=== PATIENT | female | born 1940 | race Caucasian/White ===

== ENCOUNTER 2021-02-11 09:22 | Day surgery (SDC) | payer MEDICARE, OTHER, SELFPAY ==
--- NOTE | 2021-02-11 10:33 | MHC.SHP ---
Pre-Procedural Eval Section A The patient is an INPATIENT: No The History & Physical has been completed within 30 days and I have reviewed it.: Yes Section B Chief Complaint: ocular hypertension Allergies: Allergies Allergy/AdvReac Type Severity Reaction Status Date / Time acetaminophen [Percocet] Allergy Unknown hives Verified 06/27/14 00:00 hydroxychloroquine Allergy Unknown diarrhea Verified 06/27/14 00:00 [Plaquenil] oxycodone [Percocet] Allergy Unknown hives Verified 06/27/14 00:00 propofol Allergy Unknown anaphylaxis Verified 06/27/14 00:00 Plan Diagnosis/Plan: Unchanged I have reviewed the history and physical and performed a pertinent physical examination on my patient. No changes have occurred unless specified.
[2021-02-11 10:52] VITALS: BP 149/70; PULSE 58; RESP 18; TEMP 36.8; O2SAT 95; BMI 38.4
[2021-02-11 11:18] LABS: Glucose, Whole Blood 151 mg/dL (60-115)
--- NOTE | 2021-02-11 11:22 | HO.ANESPROP2 ---
HPI - Anesthesia Eval Consult details Narrative: right eye high IOP PMFSH Past Medical History Medical History COVID-19 vaccine series completed Diabetes Elevated cholesterol Glaucoma HTN (hypertension) Osteopenia Overactive bladder Rheumatoid arthritis Scoliosis Surgical History Surgical History H/O bilateral cataract extraction History of bladder suspension procedure History of bunionectomy History of total abdominal hysterectomy and bilateral salpingo-oophorectomy History of total bilateral knee replacement Hx of colonoscopy Hx of esophagogastroduodenoscopy Hx of eye surgery Social History Social History Patient Tobacco Use Status: Never used Tobacco Use of substances other than those prescribed or required for medical reasons: No Are you DNR?: No Advance Directives: No Advance Directives Information Provided: Yes Meds Allergies Allergy/AdvReac Type Severity Reaction Status Date / Time acetaminophen [Percocet] Allergy Unknown hives Verified 02/11/21 10:45 hydroxychloroquine Allergy Unknown diarrhea Verified 02/11/21 10:45 [Plaquenil] oxycodone [Percocet] Allergy Unknown hives Verified 02/11/21 10:45 propofol Allergy Unknown anaphylaxis Verified 02/11/21 10:45 methotrexate Allergy Blister Verified 02/11/21 10:47 Active Medications: Current Medications Generic Name Dose Route Start Last Admin Trade Name Freq PRN Reason Stop Dose Admin Povidone Iodine 1 appl 02/11/21 10:33 Povidone Iodine 5 % Ophth Soln 30 Ml Bottle EYE-RIGHT PREOP PRN Pre-Op Surgical Implant Prophy Home Medications Medication Instructions Recorded Confirmed Last Taken Type Calcium + D 02/11/21 Unknown History Fish Oil 02/11/21 Unknown History amlodipine 1 tab PO BID 02/11/21 02/11/21 Unknown History aspirin 81 mg PO BEDTIME 02/11/21 02/11/21 Unknown History dorzolamide-timolol 02/11/21 Unknown History duloxetine 1 cap PO DAILY 02/11/21 02/11/21 Unknown History flaxseed oil 02/11/21 02/11/21 Unknown History hydrochlorothiazide 1 tab PO DAILY 02/11/21 02/11/21 Unknown History latanoprost 1 drp OPHTHALMIC (EYE) BEDTIME 02/11/21 02/11/21 Unknown History metformin 1 tab PO BID 02/11/21 02/11/21 Unknown History crwufxtokamf-jbgfeisp-arfakp 1 tab PO DAILY 02/11/21 02/11/21 Unknown History [Centrum Silver] omeprazole 1 cap PO DAILY 02/11/21 02/11/21 Unknown History oxybutynin chloride 1 tab PO BID 02/11/21 02/11/21 Unknown History simvastatin 1 tab PO BEDTIME 02/11/21 02/11/21 Unknown History sulfasalazine 2 tab PO BID 02/11/21 02/11/21 Unknown History Exam Exam Date and Time: February 11, 2021 1122 Height,Weight and Vital Signs: Height 5 ft 2 in Weight 95.254 kg Last Vital Signs Temp 98.3 F 02/11/21 10:52 Pulse 58 02/11/21 10:52 Resp 18 02/11/21 10:52 BP 149/70 H 02/11/21 10:52 Pulse Ox 95 02/11/21 10:52 Pertinent Lab Results Pertinent Lab Results: Laboratory Tests 02/11/21 10:59 POC Glucose 151 H Airway Mallampati Class: II TM Dist: >3cm Neck ROM: Full Loose/Missing/Broken Teeth: Yes Heart: [id number] Lungs: cta b/l Assessment and Plan Assessment Anesthesia Assessment: Anesthesia Plan Discussed, PAT Visit and Chart Reviewed Final Anesthetic Review NPO: Yes ASA Class: III Final Preanesthetic Review: No Changes in Pt Med Stat, Meds/Allgs Chart Reviewed, Consent Obtained/Reviewed and Anes Risks/Benef Reviewed Patient Risk: Intermediate Procedure Risk: Low Assessment/Block/Sedation in SS: Assess/Block/Sedation-SS Anesthetic Plan Anesthetic Plan: MAC: Disposition: Standard PACU
--- NOTE | 2021-02-11 11:51 | HO.PNOPHT ---
Ophthalmology Procedure Procedure Date of Service: 02/11/21 Ophthalmology Viscoelastic: Healon Duet Dual Pack Pro Ophthalmology Lenses: Not Applicable Procedure Notes: PREOPERATIVE DIAGNOSIS: Uncontrolled glaucoma right eye POSTOPERATIVE DIAGNOSIS: Same PROCEDURE: Trabeculectomy right eye SURGEON: Geo Martinez M.D. ANESTHESIA: Topical with sedation ESTIMATED BLOOD LOSS: None COMPLICATIONS: None After obtaining informed consent, the patient was brought to the operating room suite and placed in a supine position. After adequate sedation per Anesthesia, drops of Tetracaine were given to the right eye. The eye was then prepped and draped in the usual sterile fashion. The operating room microscope was positioned over the right eye and a lid speculum placed. A peritomy was created utilizing a combination of sharp and blunt dissection with Chaim scissors. Hemostasis was then achieved utilizing a wet-field cautery. A guarded blade was utilized to create a partial thickness scleral incision 2 mm posterior to the limbus. This was advanced with a crescent blade into clear cornea. A paracentesis was created temporally, followed by instillation of Viscoelastic superiorly. Attention was directed back to the scleral incision site where the anterior chamber was entered utilizing a 2.85 mm keratome. A Sarah punch was utilized to remove trabecular tissue. Aqueous humor was monitored for adequate egress followed by closure of the conjunctiva with Vicryl suture. BSS was instilled into the anterior chamber creating a superior bleb with no obvious leaks superiorly. The lid speculum was removed. Topical drops of antibiotics, steroids and Atropine were then given. The patient tolerated the procedure well and will be followed up in the a.m.
[2021-02-11 12:25] VITALS: BP 130/55; PULSE 58; RESP 18; TEMP 36.6; O2SAT 100
[2021-02-11 12:40] VITALS: BP 139/68; PULSE 60; RESP 18; TEMP 36.6; O2SAT 97
== END 2021-02-11 12:58 | disposition home or self-care (01) ==
PROVIDERS: PCP Internal Medicine Geriatric Medicine; Visit Provider Ophthalmology
PROC: (CPT 66170; principal; 2021-02-11 12:20)
DX: H40.053 Ocular hypertension, bilateral (principal); E11.9 Type 2 diabetes mellitus without complications; I10 Essential (primary) hypertension; Z79.84 Long term (current) use of oral hypoglycemic drugs; Z79.899 Other long term (current) drug therapy; Z88.5 Allergy status to narcotic agent
CPT/HCPCS: 66170; 82947; J2250; J2405; J3010; J7315

== ENCOUNTER 2021-02-25 17:11 | Day surgery (SDC) | payer MEDICARE, OTHER, SELFPAY ==
[2021-02-18 10:41] VITALS: BMI 38.4
--- NOTE | 2021-02-21 08:05 | MHC.SHP ---
Pre-Procedural Eval Section A Date of Service: 02/21/21 The patient is an INPATIENT: No The History & Physical has been completed within 30 days and I have reviewed it.: Yes Section B Chief Complaint: ocular hypertension Allergies: Allergies Allergy/AdvReac Type Severity Reaction Status Date / Time propofol Allergy Severe anaphylaxis Verified 02/18/21 10:35 hydroxychloroquine Allergy Intermediate diarrhea Verified 02/18/21 10:35 [Plaquenil] oxycodone [Percocet] Allergy Intermediate hives Verified 02/18/21 10:35 methotrexate Allergy Mild Blister Verified 02/18/21 10:35 Plan Diagnosis/Plan: Unchanged I have reviewed the history and physical and performed a pertinent physical examination on my patient. No changes have occurred unless specified.
[2021-02-25 14:54] VITALS: BP 162/70; PULSE 62; RESP 16; TEMP 36.8; O2SAT 97
[2021-02-25 15:14] LABS: Glucose, Whole Blood 134 mg/dL (60-115)
--- NOTE | 2021-02-25 15:16 | HO.ANESPROP2 ---
[facility] Past Medical History Medical History COVID-19 vaccine series completed Diabetes Elevated cholesterol Glaucoma HTN (hypertension) Osteopenia Overactive bladder Rheumatoid arthritis Scoliosis Surgical History Surgical History H/O bilateral cataract extraction History of bladder suspension procedure History of bunionectomy History of total abdominal hysterectomy and bilateral salpingo-oophorectomy History of total bilateral knee replacement History of trabeculectomy Hx of colonoscopy Hx of esophagogastroduodenoscopy Hx of eye surgery Social History Social History Patient Tobacco Use Status: Never used Tobacco Use of substances other than those prescribed or required for medical reasons: No Are you DNR?: No Advance Directives: No Advance Directives Information Provided: Yes Meds Allergies Allergy/AdvReac Type Severity Reaction Status Date / Time propofol Allergy Severe anaphylaxis Verified 02/25/21 14:49 hydroxychloroquine Allergy Intermediate diarrhea Verified 02/25/21 14:49 [Plaquenil] oxycodone [Percocet] Allergy Intermediate hives Verified 02/25/21 14:49 methotrexate Allergy Mild Blister Verified 02/25/21 14:49 Active Medications: Current Medications Generic Name Dose Route Start Last Admin Trade Name Freq PRN Reason Stop Dose Admin Lactated Ringer's 500 mls @ 50 mls/hr 02/25/21 15:15 Lr IV 02/26/21 01:14 .Q10H DANTE Povidone Iodine 1 appl 02/25/21 14:46 Povidone Iodine 5 % Ophth Soln 30 Ml Bottle EYE-LEFT PREOP PRN Pre-Op Surgical Implant Prophy Home Medications Medication Instructions Recorded Confirmed Last Taken Type amlodipine 5 mg PO BID 02/11/21 02/18/21 02/25/21 08:30 History aspirin 81 mg PO BEDTIME 02/11/21 02/18/21 02/23/21 21:30 History dorzolamide-timolol 1 drp OPHTHALMIC (EYE) BID 02/11/21 02/18/21 Unknown History duloxetine 1 cap PO BID 02/11/21 02/18/21 02/25/21 08:30 History hydrochlorothiazide 1 tab PO DAILY 02/11/21 02/18/21 Unknown History latanoprost 1 drp OPHTHALMIC (EYE) BEDTIME 02/11/21 02/18/21 Unknown History metformin 1 tab PO BID 02/11/21 02/18/21 Unknown History tbthghigteye-zvsphack-dfqmax 1 tab PO DAILY 02/11/21 02/18/21 Unknown History [Centrum Silver] omeprazole 1 cap PO DAILY 02/11/21 02/18/21 02/25/21 08:30 History oxybutynin chloride 1 tab PO BID 02/11/21 02/18/21 02/25/21 08:30 History simvastatin 1 tab PO BEDTIME 02/11/21 02/18/21 Unknown History sulfasalazine 2 tab PO BID 02/11/21 02/18/21 Unknown History calcium carbonate-vitamin D2 1 tab PO BID 02/18/21 02/18/21 Unknown History [Calcium + Vitamin D] flaxseed oil 1,000 mg PO DAILY 02/18/21 02/18/21 02/25/21 08:30 History omega 5-mfu-rqs-fish oil [Fish Oil] 1 cap PO DAILY 02/18/21 02/18/21 Unknown History Exam Exam Date and Time: February 25, 2021 1516 Height,Weight and Vital Signs: Height 5 ft 2 in Weight 95.254 kg Last Vital Signs Temp 98.2 F 02/25/21 14:54 Pulse 62 02/25/21 14:54 Resp 16 02/25/21 14:54 BP 162/70 H 02/25/21 14:54 Pulse Ox 97 02/25/21 14:54 Pertinent Lab Results Pertinent Lab Results: Laboratory Tests 02/25/21 15:11 POC Glucose 134 H Airway Mallampati Class: II TM Dist: >3cm Neck ROM: Full Heart: rrr Lungs: cta Assessment and Plan Assessment Anesthesia Assessment: Anesthesia Plan Discussed and Chart Reviewed Final Anesthetic Review NPO: Yes ASA Class: III Final Preanesthetic Review: No Changes in Pt Med Stat and Consent Obtained/Reviewed Patient Risk: Intermediate Procedure Risk: Intermediate Anesthetic Plan Anesthetic Plan: MAC: Disposition: Standard PACU
[2021-02-25] MEDS: Lactated Ringers 500 ML 50 ML IV (15:44)
--- NOTE | 2021-02-25 16:01 | P.PCNO_ITS ---
Ophthalmology Procedure Procedure Date of Service: 02/25/21 Ophthalmology Viscoelastic: Healon Duet Dual Pack Pro Ophthalmology Lenses: Not Applicable Procedure Notes: PREOPERATIVE DIAGNOSIS: Uncontrolled glaucoma left eye POSTOPERATIVE DIAGNOSIS: Same PROCEDURE: Trabeculectomy left eye SURGEON: Geo Martinez M.D. ANESTHESIA: Topical with sedation ESTIMATED BLOOD LOSS: None COMPLICATIONS: None After obtaining informed consent, the patient was brought to the operating room suite and placed in a supine position. After adequate sedation per Anesthesia, drops of Tetracaine were given to the left eye. The eye was then prepped and draped in the usual sterile fashion. The operating room microscope was positioned over the left eye and a lid speculum placed. A peritomy was created utilizing a combination of sharp and blunt dissection with Chaim scissors. Hemostasis was then achieved utilizing a wet-field cautery. A guarded blade was utilized to create a partial thickness scleral incision 2 mm posterior to the limbus. This was advanced with a crescent blade into clear cornea. A paracentesis was created temporally, followed by instillation of Viscoelastic superiorly. Attention was directed back to the scleral incision site where the anterior chamber was en tered utilizing a 2.85 mm keratome. A Sarah punch was utilized to remove trabecular tissue. Aqueous humor was monitored for adequate egress followed by closure of the conjunctiva with Vicryl suture. BSS was instilled into the anterior chamber creating a superior bleb with no obvious leaks superiorly. The lid speculum was removed. Topical drops of antibiotics, steroids and Atropine were then given. The patient tolerated the procedure well and will be followed up in the a.m.
[2021-02-25 16:53] VITALS: BP 145/63; PULSE 69; RESP 16; TEMP 36.2; O2SAT 97
== END 2021-02-25 17:15 | disposition home or self-care (01) ==
LOC: HO.SSS 17:12
PROVIDERS: PCP Internal Medicine Geriatric Medicine; Visit Provider Ophthalmology
PROC: (CPT 66170; principal; 2021-02-25 15:10)
DX: H40.052 Ocular hypertension, left eye (principal); H40.812 Glaucoma with increased episcleral venous pressure, left eye; Z83.511 Family history of glaucoma; M06.9 Rheumatoid arthritis, unspecified; E11.9 Type 2 diabetes mellitus without complications; Z79.84 Long term (current) use of oral hypoglycemic drugs; Z79.899 Other long term (current) drug therapy
CPT/HCPCS: 66170; 82947; J2250; J2405; J3010; J3300; J7315